=== PATIENT | male | born 1960 | race Caucasian/White ===

== ENCOUNTER 2019-06-24 07:36 | Day surgery (SDC) | payer OTHER ==
[~2019-06-24] VITALS: Ht 172.7 cm; Wt 103.0 kg
--- NOTE | 2019-06-24 07:44 | DISCH ---
DISCHARGE INSTRUCTIONS Condition on Discharge Condition on Discharge: Stable Activity After Discharge Activity Instructions for Disc: Activity as tolerated Other activity instructions: no athletics/exercise Bathing Instructions: Shower-keep dressing dry Weight Bearing Status after Di: As tolerated Diet after Discharge Diet after Discharge: Regular Wound Incision Care Wound/Incision Care: Ice to area for comfort, Keep wound/cast CDI, Change dressing Other wound/incision instructi: ok to change dressing after [address] after DC Call your doctor for: Concerns you may have Follow-Up Follow up with: María Elena in 2 wks ERICA SANDERS II, MD Jun 24, 2019 07:44
[2019-06-24] MEDS ORDERED: IV RINGERS,LACTATED 1000ML 1,000 ML IV ONE (08:15)
[2019-06-24] MEDS ORDERED: HYDR-3164 PO (08:29)
[2019-06-24] MEDS ORDERED: DOCU-109 PO (08:30)
[2019-06-24] MEDS ORDERED: ONDA8TAB9 PO (08:30)
[2019-06-24] MEDS ORDERED: HYDROcodone/APAP 5/325MG 1 TAB TABLET PO ONE (08:45)
[2019-06-24] MEDS ORDERED: PROPOFOL 20 ML IV ONE (09:02)
[2019-06-24] MEDS ORDERED: fentaNYL PF VIAL 100 MCG/2 ML VIAL ONE (09:02)
[2019-06-24] MEDS ORDERED: LIDOCAINE 1% PF 5 ML VIAL. ONE (09:02)
[2019-06-24] MEDS ORDERED: LIDOCAINE 2% PF 5 ML VIAL. ONE (09:03)
[2019-06-24] MEDS ORDERED: EPINEPHrine VIAL 30 MG/30 ML VIAL ONE (09:48)
[2019-06-24] MEDS ORDERED: LIDOCAINE 1% PF 30 ML VIAL. ONE (09:48)
[2019-06-24] MEDS ORDERED: BUPIVACAINE MPF 0.5% 30 ML VIAL. ONE (09:48)
[2019-06-24] MEDS ORDERED: ONDANSETRON PF 4 MG/2 ML VIAL. ONE (10:03)
[2019-06-24] MEDS ORDERED: DEXAMETHASONE SOD PHOS 4 MG/ML VIAL ONE (10:03)
[2019-06-24] MEDS ORDERED: SEVOFLURANE 61 TO 120 MINUTES. IH ONE (10:25)
[2019-06-24] MEDS ORDERED: SEVOFLURANE 31 TO 60 MINUTES. IH ONE (10:42)
--- NOTE | 2019-06-24 10:53 | PDOC4 ---
Operative Note Operative Note Date of procedure: 06/24/19 Surgeon: Gianluca Sanders Asst.: Benoit Jaquez, advanced practice registered nurse Preoperative diagnosis: left knee medial meniscus tear Postoperative diagnosis: same Procedure performed: left knee arthroscopic partial medial meniscectomy Anesthesia: Gen. Tourniquet Time: 12 minutes Blood loss: 2 mL Findings: medial meniscus tear, flap at posterior body Reason for procedure: Patient is very pleasant individual who had seen and evaluated in my outpatient orthopedic surgery clinic for complaints of a loose body. Clinical and radiographic examination were consistent with the preoperative diagnosis and we had a discussion of the risks, benefits, and alternatives to the above surgery and the patient wished to proceed. Description of procedure: Patient was greeted in the preoperative holding area by myself for the correct extremity was verified and marked. There were taken back to the operative suite, antibiotic started as they were brought back. Once in the operating room, the patient was transferred gently supine to the operative room table and secured the bed with all pressure points padded and underwent successful induction of a general anesthetic. After this, we applied a nonsterile tourniquet to the operative thigh and taped in place. A padded bump was secured to bed laterally at the hip and a padded rest across the foot of the bed to maintain the knee at 90� passively. Examination under anesthesia demonstrated a knee that was stable to varus and valgus in extension and 30� of flexion and had full range of motion. After this, the operative extremity was prepped and draped in our usual sterile fashion and we conducted our standard preoperative timeout. I palpated and marked surface anatomy and elma lines my planned anterolateral and anteromedial portals. The extremity was exsanguinated with an Esmarch and tourniquet insufflated to 250 mmHg. I then incised skin for my anterolateral arthroscopic portal and introduced the blunt arthroscopic trocar into the suprapatellar pouch followed by the camera. I conducted my diagnostic arthroscopy with above noted findings and upon entering the medial compartment used a spinal needle to localize the anteromedial portal. I incised skin in accordance with this and dilated this well. I introduce my probe and continued on with my diagnostic arthroscopy. I placed his knee in a figure 4 position to inspect the lateral compartment and redirected my attention, after this, back to the medial compartment right is comminution of arthroscopic shaver and biter to trim back the meniscus, removing the tear and trimming it back to a stable rim. After this, I placed the shaver and camera into the suprapatellar pouch and performed repeated vigorous palpation in the posterior knee to remove any loose debris through the shaver suction. I then removed all excess arthroscopic fluid and the arthroscopic interpretation. Skin was closed with simple interrupted 3-0 nylon. Xeroform gauze ABD Sof-Rol and an Guillermo wrap are applied to his knee. Tourniquet was let down. No complications. Patient tolerated surgery well. At the conclusion, he was awakened from anesthesia and transferred supine to the recovery room cart and taken to the PACU in stable and extubated condition. Postoperative plan is to discharge him home, weightbearing as tolerated. Wound care was discussed with he and his were given and written form. He will follow up with me in 2 weeks, sooner should a problem arise GIANLUCA SANDERS II, MD Jun 24, 2019 10:53
[2019-06-24] MEDS ORDERED: ceFAZolin 2GM PREMIX 2 GM/50 ML BAG IV ONE (11:00)
[2019-06-24 11:30] VITALS: BP 147/91
== END 2019-06-24 12:15 | disposition home or self-care (01) ==
LOC: SURG 07:36
PROVIDERS: ATTEND Orthopaedic Surgery Sports Medicine
DX: S83.232A Complex tear of medial meniscus, current injury, left knee, initial encounter (principal); X58.XXXA Exposure to other specified factors, initial encounter; Y93.89 Activity, other specified; Y92.89 Other specified places as the place of occurrence of the external cause; Y99.8 Other external cause status; Z72.89 Other problems related to lifestyle; Z98.890 Other specified postprocedural states
CPT/HCPCS: 29881; 97116; 97162; 97530; A7015; C1782; J0171; J0696; J1100; J2001; J2405; J2704; J3010; J3490